=== PATIENT | male | born 2000 | race Caucasian/White ===

== ENCOUNTER 2024-10-09 09:09 | Emergency (ER) | payer BC, OTHER ==
[~2024-10-09] VITALS: Ht 177.8 cm; Wt 93.4 kg
[2024-10-09 09:35] VITALS: TEMP 98.3
[2024-10-09] MEDS ORDERED: FAMOTIDINE/PF INJ 20 MG/2 ML VIAL IV ONE (10:10)
[2024-10-09] MEDS ORDERED: PANTOPRAZOLE 40 MG VIAL ONE (10:10)
[2024-10-09] MEDS ORDERED: METOCLOPRAMIDE HCL 10 MG/2 ML VIAL ONE (10:10)
[2024-10-09 10:19] LABS: PLATELET COUNT (AUTO) 266 K/uL (150-450); RED BLOOD CELL COUNT(AUTO) 5.91 MIL/uL (4.5-6.0); RED CELL DISTRIBUTION WIDTH 13.0 % (11.5-15.0); WHITE BLOOD COUNT (AUTO) 7.9 K/uL (4.3-11.0)
[2024-10-09] MEDS: PANTOPRAZOLE 40 MG VIAL IV ONE (10:19)
[2024-10-09] MEDS: FAMOTIDINE/PF INJ 20 MG/2 ML VIAL IV ONE (10:19)
[2024-10-09] MEDS: METOCLOPRAMIDE HCL 10 MG/2 ML VIAL IV ONE (10:20)
[2024-10-09 10:38] LABS: ASPARTATE AMINOTRANSFERASE 22.0 U/L (15-37); CALCIUM, SERUM 9.3 mg/dL (8.5-10.1); CREATININE 1.3 mg/dL (0.6-1.3); SODIUM SERUM 134.0 mmol/L (136-145); TOTAL PROTEIN, SERUM 7.7 g/dL (6.4-8.2); UREA NITROGEN, BLOOD 15.0 mg/dL (7-18)
[2024-10-09] MEDS: IV NS 0.9% 1,000 ML BAG IV ONE (10:49)
[2024-10-09] MEDS: SUCRALFATE 1 G TABLET PO ONE (10:52)
[2024-10-09] MEDS ORDERED: FAMO20TA80 PO (11:18)
[2024-10-09] MEDS ORDERED: METO10TA3 PO (11:18)
[2024-10-09] MEDS ORDERED: SUCR1TAB31 PO (11:18)
[2024-10-09 12:05] VITALS: BP 127/73; O2SAT 97
[2024-10-09] MEDS ORDERED: ONDANSETRON HCL/PF 4 MG/2 ML VIAL IV ONE (12:30)
== END 2024-10-09 12:22 | disposition home or self-care (01) ==
LOC: ER 09:09
DX: R10.13 Epigastric pain (principal); T50.905A Adverse effect of unspecified drugs, medicaments and biological substances, initial encounter; R11.0 Nausea; K21.9 Gastro-esophageal reflux disease without esophagitis; Y92.9 Unspecified place or not applicable
CPT/HCPCS: 99284; 96374; 96361; 96375; 85025; 83690; 36415; 80053; J1308; J2765; J2470